=== PATIENT | male | born 1950 | race Caucasian/White ===

== ENCOUNTER 2025-03-10 15:14 | Outpatient (AMB) | payer MEDICARE, SELFPAY ==
--- OUTSIDE RECORDS SUMMARY | 2025-03-06 12:00 | XMS_ITS | Encounter Summary ---
Author Organization [facility] Address [address] [place] [address] Care Team Providers Care Printing Manager Name Role Phone Kane Goetz Primary Care Provider [phone] Reason for Visit * Consultation (Routine) - Authorized Specialty Diagnoses / Procedures Referred By Bella hoskins Referred To Contact Physical Therapy Diagnoses Hammer toe, unspecified laterality Bilateral shoulder pain, unspecified chronicity Kane Goetz PA [address] [place] [address] Phone: tel: fax: Referral ID Status Reason Start Date Expiration Date Visits Requested Visits Authorized [id number] Authorized Specialty Services Required 02/14/2025 02/14/2026 13 13 Encounter Details Date Type Department Care Team (Late st Contact Info) Description 03/06/2025 12:00 PM EDT Treatment Outpatient Rehabilitation - [address] [address] Keely King, FINANCIAL INSTITUTION BRANCH MANAGER Bilateral shoulder pain, unspecified chronicity (Primary Dx) Social History Tobacco Use Types Packs/Day Years Used Date Smoking Tobacco: Former Cigarettes Smokeless Tobacco: Never Comments:Quit in 1972 Alcohol Use Standard Drinks/Week Comments Yes 0 (1 standard drink = 0.6 oz pur e alcohol) Housing Instability Answer Date Recorde d Are you worried that in the next 2 months you may not have stable housing? No 09/30/2024 Food Access & Nutrition Answer Date Rec orded Do you have access to a vari ety of food including fruits and vegetables? Yes 09/30/2024 Access to Healthcare Answer Date Record ed Within the last 3 months, ho w many times did you visit the emergency department for your medical care? 0 09/30/2024 Health Literacy Answer Date Recorded How often do you need to hav e someone help you when you read instructions, pamphlets, or other written material from your doctor or pharmacy? Never 09/30/2024 Caregiver: How often do you need to have someone help you when you read instructions, pamphlets, or other written material from your doctor or pharmacy? Not on file 09/30/2024 Financial Risk Answer Date Recorded How hard is it for you to pa y for the very basics like food, housing, medical care, and air conditioning / heating? Not very hard 09/30/2024 Transportation Answer Date Recorded Has the lack of transportati on kept you from meetings, work, or from getting things needed for daily living? No Has the lack of transportati on kept you from medical appointments or from getting medications? No 09/30/2024 Social Isolation Answer Date Recorded How often do you feel lonely or isolated from th ose around you? Rarely 09/30/2024 Food Risk Answer Date Recorded Within the past 12 months we worried whether our food would run out before we got money to buy more. Never true 09/30/2024 Within the past 12 months th e food we bought just didn't last and we didn't have money to get more. Never true 09/30/2024 Dependent Care Answer Date Recorded Do you need help finding or paying for care for your loved ones. For example, child care cook or elderly care for an older adult? No 09/30/2024 Education Answer Date Recorded Do you think completing more education or training, like finishing a GED, going to college, or learning a trade, would be helpful for you? No 09/30/2024 Employment and Income Answer Date Recor ded During the last four weeks, have you been actively looking for work? No 09/30/2024 Living Situation Answer Date Recorded What is your living situation? 0 09/30/2024 Sex and Gender Information Value Date Recorded Sex Assigned at Male 03/04/2025 3:20 PM EDT Legal Sex Male 2:01 PM EST Gender Identity Male 03/04/2025 3:20 PM EDT Sexual Orientation Straight 03/04/2025 3: 20 PM EDT documented as of this encounter Progress Notes * Keely King PTA - 03/06/2025 12:00 PM EDT [facility] - Outpatient PHYSICAL THERAPY DAILY TREATMENT NOTE - OP Date: 03/06/2025 Visit Number: 5 Patient Name: Alfie Arevalo : 1950 Age: 74 y.o. Gender: male Diagnosis: ICD-10-CM ICD-9-CM 1. Bilateral shoulder pain, unspecified chronicity M25.511 719.41 M25.512 Date of Onset/Surgery: 12/18/2024 Referring Provider: Kane Goetz PA Insurance: Payor: MEDICARE / Plan: MEDICARE PART A & B / Product Type: Medicare / Patient Identified by: Keely King PTA Language: Setswana Medications: Current Outpatient Medications on File Prior to Visit Medication Sig Dispense Refill acetaminophen (TYLENOL) 500 mg tablet Take by mouth 2 (two) times a day. apixaban (ELIQUIS) 5 mg tablet Take 1 tablet (5 mg total) by mouth 2 (two) times a day. 180 each 3 azelastine (ASTELIN) 137 mcg (0.1 %) nasal spray Administer 2 sprays into each nostril 2 (two) times a day. 90 mL 3 B complex tablet Take 1 tablet by mouth 1 (one) time each day. betamethasone valerate (VALISONE) 0.1 % cream Apply 1 Application topically 2 (two) times a day. 90g 1 cholecalciferol (VITAMIN D-3) 10 mcg (400 unit) tablet Take by mouth. cyanocobalamin (VITAMIN B-12) 1,000 mcg tablet Take 1 tablet (1,000 mcg total) by mouth. dilTIAZem CD (CARDIZEM CD) 240 mg 24 hr capsule Take 1 capsule (240 mg total) by mouth 1 (one) timeeach day. 90 each 3 fluticasone propionate (FLONASE) 50 mcg/actuation nasal spray Administer 2 sprays into affected nostril(s). folic acid (FOLVITE) 1 mg tablet Take 1 tablet (1 mg total) by mouth 1 (one) time each day. Gemtesa 75 mg tablet tablet GENERIC EXTERNAL MEDICATION Monthly allergy injection levothyroxine (SYNTHROID, LEVOTHROID) 88 mcg tablet Take 1 tablet (88 mcg total) by mouth 1 (one) time each day. 90 tablet 3 meloxicam (MOBIC) 15 mg tablet Take 1 tablet (15 mg total) by mouth 1 (one) time each day after dinner. 90 tablet 1 methotrexate 2.5 mg tablet Take 3 tablets (7.5 mg total) by mouth 1 (one) time per week Follow directions carefully, and ask to explain any part you do not understand. Take exactly as directed. metoprolol tartrate (LOPRESSOR) 25 mg tablet TAKE 1 TABLET TWICE A DAY 180 tablet 2 montelukast (SINGULAIR) 10 mg tablet Take 1 tablet (10 mg total) by mouth at bedtime. 90 each 3 multivitamin tablet Take by mouth. With minerals omega-3 acid ethyl esters (LOVAZA) 1 gram capsule Take 1 capsule (1,000 mg total) by mouth 1 (one) time each day. omeprazole (PriLOSEC) [address] capsule Take 1 capsule (20 mg total) by mouth 1 (one) time each day.90 capsule 3 solifenacin (VESICARE) 10 mg tablet Take 1 tablet (10 mg total) by mouth. [DISCONTINUED] oxyBUTYnin XL (DITROPAN-XL) 10 mg 24 hr tablet Take 1 tablet (10 mg total) by mouth. No current facility-administered medications on file prior to visit. Allergies: is allergic to grass pollen and sulfa (sulfonamide antibiotics). Precautions: Fall risk: No Patient/Caregiver Goals: SUBJECTIVE Subjective Report: I mowed the lawn for 3 hours yesterday. I am sore from it. Chart Reviewed: Yes Pain Mostly left shoulder 5/10. OBJECTIVE TREATMENT INTERVENTION: Procedures: UBE 2 forward/3 retro mins. Unweighted ronal via 3 lbs, 30 reps for flexion and scaption. 5 second hold. Standing L Sh ER walk outs x 2 sets of 10. Standing Shoulder Ext w/ Green cord x 2 sets of 10. Manual Therapy: PROM for L Sh Flex, ABD, ER. IR. STM/MFR to L Pec [place]. KT taping w/ 2 pieces: RTC and GH retraction w/ education on care/removal. HEP: (B) ER w/ GTB, Supine AA flexion, AA sh ER, Seated chin Tucks, Seated Scap retraction. ASSESSMENT/Response to Treatment Good Good relief after PT but pt continues to challenge it w/ ADL's. Patient Education: Pt education on pacing strategies w/ yard tasks. PLAN POC Development/Review: Changes in the Plan of Care; Participants: Patient Total Treatment Time: 30 Modalities: There Ex: 21 Manual Therapy: 9 Documentation completed by Keely King PTA documented in this encounter Plan of Treatment Upcoming Encounters Date Type Department Care Team (Late st Contact Info) Description 03/12/2025 1:00 PM EDT Treatment Outpatient Rehabilitation [address] [phone] Ryan Caputo, PT 03/17/2025 12:30 PM EDT Treatment Outpatient [address] [phone] Keely King, NISREEN 03/19/2025 1:30 PM EDT Treatment Outpatient [address] [phone] Ryan Caputo, PT 04/09/2025 12:45 PM EDT Office Visit Adult Medicine [address] [phone] Kane Goetz, PA [address] [place], [place] 04/21/2025 1:45 PM EDT Office Visit Orthopedic Surgery [facility] [address] [phone] Aguila Palencia, DPM [address] [address] 09/01/2025 2:20 PM EST Office Visit Pulmonolgy - [place] [address] [place] [address] Vee Feldman NP [address] [place] [address] documented as of this encounter Visit Diagnoses Diagnosis Bilateral shoulder pain, unspecified chronicity- Primary documented in this encounter Additional Health Concerns Assessment Noted Time PHQ-9 Depression Total Score: 0 10/01/19 25 11:08 AM EDT documented as of this encounter Care Teams Printing Manager Relationship Specialty Start Date End Date Kane Goetz PA [address] [place] [address] PCP - General Internal Medicine 06/04/24 documented as of this encounter
--- OUTSIDE RECORDS SUMMARY | 2025-03-10 15:47 | XMS_ITS ---
Author Name [facility] Organization Unknown Care Team Organization Name Specialty Phone Email Start Date End Da te [facility] Kane Goetz Primary Care 12/30/2022 [facility] Vee Feldman Primary Care 05/31/2022 03/11/2024
== END 2025-03-10 15:21 | disposition home or self-care (01) ==
LOC: HO.HMGAL 15:14
PROVIDERS: PCP Physician Assistant Medical; Visit Provider Registered Nurse Emergency
DX: J30.89 Other allergic rhinitis (principal)
CPT/HCPCS: 95117; 95165

== ENCOUNTER 2025-04-07 14:22 | Outpatient (AMB) | payer MEDICARE, SELFPAY | END 2025-04-07 14:23 | disposition home or self-care (01) | LOC: HO.HMGAL 14:22 | PROVIDERS: PCP Physician Assistant Medical; Visit Provider Registered Nurse Emergency | DX: J30.89 Other allergic rhinitis (principal) | CPT/HCPCS: 95117; 95165 ==

== ENCOUNTER 2025-05-07 14:40 | Outpatient (AMB) | payer MEDICARE, SELFPAY ==
--- OUTSIDE RECORDS SUMMARY | 2025-04-10 10:00 | XMS_ITS ---
Author Organization [facility] Address [address] [place] [address] Care Team Providers Care Director Of Land Acquisition Name Role Phone Kane Giron Primary Care Provider Unav ailable Kira aBrragan Unavailable [phone] Encounters Encounter Location Date Provider Diagnosis [facility] [address] [place] [address] 04/10/2025 Kira Barragan Plan Of Treatment No Information Progress Notes * Alfie AREVALODOB: (74 yo M)Acc No.[id number]:04/10/2025 Progress Notes Patient: Alfie MAN Provider: Emmanuel Barragan DPM :1950 A ge:74 Y S ex:Male Date:04/10/2025 Address:[address] [place], [place] [id number] Pcp:HEIDI Perez Subjective: * Chief Complaints: * [...] 0 04/10/2025 Generated for Latoya manriquez/Virgie/Russ on: 06:23 PM EDT
--- OUTSIDE RECORDS SUMMARY | 2025-05-07 18:23 | XMS_ITS | Patient Health Record ---
Author Organization [facility] Address [address] [place] [address] Care Team Providers Care Terrestrial Ecologist Name Role Phone Kane Giron Primary Care Provider Unav ailable Kira Barragan Unavailable [phone] Reason For Referral No Information Encounters Encounter Location Date Provider Diagnosis [facility] [address] [place] [address] 01/28/2025 Kira Barragan Plan Of Treatment No Information Insurance Providers Payer Name Payer Address Payer Phone Subscriber Number Group Number Insured Name Patient Relationship to Insured Coverage Start Date Coverage End Date Medicare National [facility] [address] [facility] [place] [address] [id number] Alfie Arevalo Self - patient is the insured [employer] Blue [employer] [address] [place] [address] [phone] [id number] Alfie Arevalo Self - patient is the insured
== END 2025-05-07 14:40 | disposition home or self-care (01) ==
LOC: HO.HMGAL 14:40
PROVIDERS: PCP Physician Assistant Medical; Visit Provider Registered Nurse Emergency
DX: J30.89 Other allergic rhinitis (principal)
CPT/HCPCS: 95117; 95165

== ENCOUNTER 2025-06-04 15:07 | Outpatient (AMB) | payer MEDICARE, SELFPAY ==
--- OUTSIDE RECORDS SUMMARY | 2025-04-10 09:00 | XMS_ITS ---
Author Organization [facility] Address [address] [place] [address] Care Team Providers Care Perianesthesia Manager Name Role Phone Kane Giron Primary Care Provider Unav ailable Kira Barragan Unavailable [phone] Encounters Encounter Location Date Provider Diagnosis [facility] [address] [place] [address] 04/10/2025 Kira Barragan Plan Of Treatment No Information Progress Notes * Alfie AREVALODOB: (74 yo M)Acc No.[id number]:04/10/2025 Progress Notes Patient: Alfie MAN Provider: Emmanuel Barragan DPM :1950 A ge:74 Y S ex:Male Date:04/10/2025 Address:[address] [place], [place] [id number] Pcp:HEIDI Perez Subjective: * Chief Complaints: * * Medical History: Objective: * Vitals: Assessment: Plan: * Treatment: * Images: * The named appointment provid er may or may not be the originator of this progress note, and it is not deemed complete until electronically signed by the appointment provider. Sign off status: Pending * Provider: Emmanuel Barragan DPM Date: 0 04/10/2025 Generated for Latoya manriquez/Virgie/Russ on: 08/04/2024 06:26 PM EST
--- OUTSIDE RECORDS SUMMARY | 2025-06-04 13:30 | XMS_ITS | Encounter Summary ---
Author Organization [facility] Address [address] [place] [address] Care Team Providers Care Bottom Man Name Role Phone Kane Goetz Primary Care Provider [phone] Reason for Visit * Consultation (Routine) - Authorized Specialty Diagnoses / Procedures Referred By Bella hoskins Referred To Contact Physical Therapy Diagnoses Bilateral hip pain Jenni Osborn PA [address] [place], [place] Phone: tel: fax: Referral ID Status Reason Start Date Expiration Date Visits Requested Visits Authorized [id number] Authorized Specialty Services Required 04/15/2025 04/15/2026 1 13 Encounter Details Date Type Department Care Team (Late st Contact Info) Description 06/04/2025 1:30 PM EST Treatment Outpatient Rehabilitation [address] [phone] Keely King, OIL RECOVERY UNIT OPERATOR Bilateral hip pain (Primary Dx) Social History Tobacco Use Types [...] care for your loved ones. For example, children's literature professor or elderly care for an older adult? [...] Date Recorded What is your living situation? Unrecognized valu e 09/30/2024 Sex and Gender Information Value Date Recorded Sex Assigned at Male 03/04/2025 3:20 PM EDT Legal Sex Male 2:01 PM EST Gender Identity Male 03/04/2025 3:20 PM EDT Sexual Orientation Straight 03/04/2025 3: 20 PM EDT documented as of this encounter Progress Notes * Keely King PTA - 06/04/2025 1:30 PM EST [facility]- Outpatient PHYSICAL THERAPY DAILY TREATMENT NOTE - OP Date: 06/04/2025 Visit Number: 5 Patient Name: Alfie Arevalo : 1950 Age: 74 y.o. Gender: male Diagnosis: ICD-10-CM ICD-9-CM 1. Bilateral hip pain M25.551 719.45 M25.552 Date of Onset/Surgery: 03/25/2025 Referring Provider: Jenni Osborn PA Insurance: Payor: MEDICARE / Plan: MEDICARE PART A & B / Product Type: Medicare / Patient Identified by: Keely King PTA Language: Speaks and understands Bahraini as preferred language with no metal miner required Medications: Medications Ordered Prior to Encounter[1] Allergies: is allergic to grass pollen and sulfa (sulfonamide antibiotics). Precautions: None Fall risk: No SUBJECTIVE: Subjective Report: Chart Reviewed: Yes Pain: (B) hip /10. OBJECTIVE: Vitals: There were no vitals filed for this visit.; TREATMENT INTERVENTION: Therex: Nu Step L5 x 5 minutes. True stretch for HF stretching x 3 reps on each side w/ 30 sec hold Marching PTB w/ hands on True stretch x 2 sets of 10 on each side. Lat stepping w/ BTB length counter x 3 laps each. SKTC x 4 reps w/ 20 sec hold. Bridging w/ Hip ADD x 2 sets of 10. Manual Therapy: Manual stretching of (B) LE': HF, Hip Rot, Hip Ext. (B) Lat Hip Distraction. Foam rolling to (B) ITB's, Vl's. ASSESSMENT/Response to Treatment Good Decreased (B) hip pain. Pt departed clinic w/ increased step length. Patient Education: Education provided: HEP: Alt Knee fall outs in H/L. standing HF stretch on stairs.Bridging w/ Hip ADD. Lat stepping w/ BTB. SKTC. Education Provided To: Patient utilizing Explanation, Demonstration, and Printed Material mode(s) of education Response to Education: Applied Knowledge, Verbal Understanding, and Demonstrated Skills PLAN POC Development/Review: No Change in the Plan of Care; Participants: Patient Interventions Time Entry: Modalities: Therapeutic procedures: Therex: 21 Manual therapy: 9 Total Treatment Time: 30 Documentation completed by Keely King PTA [1] Current Outpatient Medications on File Prior to [...] tablet GENERIC EXTERNAL MEDICATION Monthly allergy injection ketoconazole (NIZORAL) 2 % cream Apply topically 1 (one) time each day. 60 g 2 levothyroxine (SYNTHROID, LEVOTHROID) 88 mcg tablet Take 1 tablet (88 mcg total) by mouth 1 (one) time each day. 90 tablet 3 meloxicam (MOBIC) 15 mg tablet Take 1 tablet (15 mg total) by mouth 1 (one) time each day after dinner. 90 tablet 0 methotrexate 2.5 mg tablet Take 3 tablets [...] facility-administered medications on file prior to visit. documented in this encounter Plan of Treatment Upcoming Encounters Date Type Department Care Team (Late st Contact Info) Description 06/06/2025 12:30 PM EST Treatment Outpatient Rehabilitation [address] [phone] Keely King PTA 06/11/2025 12:30 PM EST Treatment Outpatient [address] [phone] Ryan Caputo, ANANYA 06/13/2025 1:15 PM EST Office Visit Adult Medicine [address] [phone] Jenni Osborn PA [address] [place] [address] 07/21/2025 3:00 PM EST Office Visit Orthopedic Surgery - [place] [address] [address] Aguila Palencia DPM [address] [address] 09/01/2025 2:20 PM EST Office Visit Pulmonology - [place] [address] [facility] [address] [place] [address] Vee Feldman, EDWARDO [address] [place] [address] documented as of this encounter Goals Goal Patient Goal Type Associated Problems Recent Progress Patient-Stated? Author STG's 6 visits General Yes Ryan Caputo, PT Note: Pt will report a 25% or better decrease in B hip pain when climbing stairs, walking or driving > 2 hours of sitting. Pt will demonstrate a 1/2 grade or better increase in B hip strength to increase tolerance to walking and negotiating stairs. Pt is Independent and compliant with initial HEP. LTG's 12 visits General Yes Ryan Caputo, PT Note: Pt will report a 45% or better decrease in B hip pain when climbing stairs, walking or driving @[place]. Pt will demonstrate a 1 grade or better increase in B hip strength to increase tolerance to walking and negotiating stairs. Pt will be Independent and compliant with final HEP. documented as of this encounter Visit Diagnoses Diagnosis Bilateral hip pain- Primary Pain in joint, pelvic region and thigh documented in this encounter Additional Health Concerns Assessment Noted Time PHQ-9 Depression Total Score: 0 10/01/19 25 11:08 AM EDT documented as of this encounter Care Teams Bottom Man Relationship Specialty Start Date End Date Kane Goetz PA [address] [place] [address] PCP - General Internal Medicine 06/04/24 documented as of this encounter
--- OUTSIDE RECORDS SUMMARY | 2025-06-04 18:26 | XMS_ITS | Patient Health Record ---
Author Organization [facility] Address [address] [place] [address] Care Team Providers Care Machinist 2Nd Shift Name Role Phone Kane Giron Primary Care Provider Unav ailable Kira Barragan Unavailable [phone] Reason For Referral No Information Encounters Encounter Location Date Provider Diagnosis [facility] [address] [place] [address] 01/28/2025 Kira Barragan Plan Of Treatment No Information Insurance Providers Payer Name Payer Address Payer Phone Subscriber Number Group Number Insured Name Patient Relationship to Insured Coverage Start Date Coverage End Date Medicare National [facility] [address] [place] [address] [id number] Alfie Arevalo Self - patient is the insured [employer] Blue [employer] [address] [place] [address] [id number] Alfie Arevalo Self - patient is the insured
--- OUTSIDE RECORDS SUMMARY | 2025-06-04 18:26 | XMS_ITS | Clinical Summary ---
Author Organization [address] [place] [address] Address [address] [place] [address] Phone Care Team Providers Care Swabber Name Role Phone Kane Goetz Primary Care Provider [phone] Allergies Active Allergy Reactions Criticality Noted Date Comments Grass Pollen 12/25/2015 Sulfa (Sulfonamide Antibiotics) Rash 09/22 Medications fluticasone propionate (FLONASE) 50 mcg/actuation nasal spray Administer 2 sprays into affected nostril(s). 3 Active multivitamin tablet Take by mouth. With minerals Active cyanocobalamin (VITAMIN B-12) 1,000 mcg tablet Take 1 tablet (1,000 mcg total) by mouth. Active solifenacin (VESICARE) 10 mg tablet Take 1 tablet (10 mg total) by mouth. Active cholecalciferol (VITAMIN D-3) 10 mcg (400 unit) tablet Take by mouth. Activ e omega-3 acid ethyl esters (LOVAZA) 1 gram capsule Take 1 capsule (1,000 mg total) by mouth 1 (one) time each day. 1 Active GENERIC EXTERNAL MEDICATION Monthly allergy injection Active dilTIAZem CD (CARDIZEM CD) 240 mg 24 hr capsule Take 1 capsule (240 mg total) by mouth 1 (one) time each day. 90 each 3 4 06/14/20 25 Active apixaban (ELIQUIS) 5 mg tablet Take 1 tablet (5 mg total) by mouth 2 (two) times a day. 180 each 3 4 06/14/20 25 Active acetaminophen (TYLENOL) 500 mg tablet Take by mouth 2 (two) times a day. Active levothyroxine (SYNTHROID, LEVOTHROID) 88 mcg tablet Take 1 tablet (88 mcg total) by mouth 1 (one) time each day. 90 tablet 3 5 Active omeprazole (PriLOSEC) [address] capsule Take 1 capsule (20 mg total) by mouth 1 (one) time each day. 90 capsule 3 5 Active metoprolol tartrate (LOPRESSOR) 25 mg tablet TAKE 1 TABLET TWICE A DAY 180 tablet 2 5 Active betamethasone valerate (VALISONE) 0.1 % cream Apply 1 Application topically 2 (two) times a day. 90 g 1 5 Active Gemtesa 75 mg tablet tablet 5 Active B complex tablet Take 1 tablet by mouth 1 (one) time each day. Active azelastine (ASTELIN) 137 mcg (0.1 %) nasal sprayIndications :Chronic cough Administer 2 sprays into each nostril 2 (two) times a day. 90 mL 3 5 12/20/19 26 Active montelukast (SINGULAIR) 10 mg tabletIndication s:Chronic cough Take 1 tablet (10 mg total) by mouth at bedtime. 90 each 3 5 12/29/19 26 Active methotrexate 2.5 mg tabletIndication s:rheumatoid arthritis Take 3 tablets (7.5 mg total) by mouth 1 (one) time per week Follow directions carefully, and ask to explain any part you do not understand. Take exactly as directed. Active folic acid (FOLVITE) 1 mg tabletIndication s:with methotrexate Take 1 tablet (1 mg total) by mouth 1 (one) time each day. Active ketoconazole (NIZORAL) 2 % cream Apply topically 1 (one) time each day. 60 g 2 5 07/20/20 25 Active meloxicam (MOBIC) 15 mg tablet Take 1 tablet (15 mg total) by mouth 1 (one) time each day after dinner. 90 tablet 5 Active Active Problems Problem Noted Date Diagnosed Date Coronary artery calcification seen on CT scan Overview (06/14/2024): - Comment made about it on CT scan performed for assessment of thoracic aortic aneurysm in 2019 Assessment & Plan (06/14/2024 1:46 PM EST): I reviewed that he already has evidence of subclinical coronary disease on CT scans. At this stage, his 10-year risk of cardiovascular events is definitely greater than 10%. He would benefit from primary prevention statin and theoretically it would be secondary prevention given evidence of subclinical coronary artery calcification. He would prefer not to take statins however. I think this is reasonable. He has lost 10 pounds. We reviewed that he really needs to focus on going on a very low saturated fat diet-predominantly [id number] start regular aerobic exercise. I have ordered a fasting lipid profile for him to get checked in July. He has an appointment with his PCP in September of next year. If lipids are significantly lowered, I think he can get away without statin therapy. If not, would readdress at next PCP visit. Mixed hyperlipidemia 06/14/2024 Assessment & Plan (06/14/2024 1:44 PM EST): Orders: Lipid panel; Future Lipid panel RIANNA (obstructive sleep apnea) 10/03/2023 History of Clostridioides difficile colitis 08/25 Total knee replacement status, bilateral 021 Hypothyroidism 05/29/2019 Thoracic aortic aneurysm without rupture ([facility]/HC C V24) 08/03/2018 Overview (06/14/2024): - Most recent echocardiogram from 10/19/2023 showed normal left ventricular size, wall thickness, and systolic function, normal regional wall motion with an ejection fraction of 55 to 60%, tissue Doppler evidence of increased left atrial pressure, mildly dilated right ventricle with normal systolic function, biatrial enlargement, no hemodynamically significant valve disease, mild to moderate pulmonary hypertension with RV systolic pressure 46 mmHg, evidence of high right atrial pressure, dilated ascending aorta at 4 cm and aortic root at 4.3 cm-likely unchanged from prior echo in March 2022 - CT scan of the chest without contrast on most recently on 03/02/2023 showing the thoracic aorta measuring 4 cm-unchanged from 2019 Assessment & Plan (06/14/2024 1:46 PM EST): Has been very stable over the years now. Can space out surveillance imaging to every 3 years. However he may be getting more frequent CT imaging for pulmonary reasons which would also serve to track aortic growth if any. 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, Hurthle cell adenoma Esophageal reflux 02/06/2015 Atrial fibrillation (CMS/HCC V24, [facility]/HCC V28) 1 09/20/2011 Overview (06/14/2024): -Incidentally noted in 2012 during colonoscopy with spontaneous conversion to normal sinus rhythm -Has been in persistent A-fib and EKGs dating back to at least 2021 -Rate control strategy and on Eliquis for CVA prophylaxis Assessment & Plan (06/14/2024 1:46 PM EST): Adequately rate controlled on current diltiazem and on Eliquis for CVA prophylaxis, I have provided refills for both Orders: ECG 12 lead BPH (benign prostatic hyperplasia) 03/05/2012 Overview (09/12/2023): Urology - 03/04 - PSA 0.8 with normal TIMA; f/u 1 year Gallstones 12/17/2009 Overview (09/12/2023): Noted on ct scan 2009 Diverticulitis of colon without hemorrhage 10/16 Urinary frequency 10/16/2005 Allergic rhinitis 10/16/2005 Resolved Problems Problem Noted Date Diagnosed Date Resolved Date Paroxysmal atrial fibrillati on ([facility] V24, [facility] V28) 05/02/2024 06/14/2024 Pure hypercholesterolemia 04/30/2021 Overview (09/12/2023): Last Assessment & Plan: Patient's LDL somewhat elevated. Given no known coronary artery disease or diabetes, dietary modification can continue though low threshold for starting statin therapy should his LDL go any higher. RIANNA on CPAP 12/03/2018 06/14/2024 Overview (09/12/2023): [facility] home study: Date 04/27/18: AHI 13, Central apneas 6; Obstructive apneas 28; Mixed apneas 0; hypopneas 49; average oxygen saturation 92% (lowest 76%); Hypertriglyceridemia 09/10/2009 024 Encounters Date Type Department Care Team Description 06/04/2025 1:30 PM EST Treatment Outpatient Rehabilitation [address] [phone] Keely King, GRAIN MERCHANDISER Bilateral hip pain (Primary Dx) 05/28/2025 1:30 PM EST Treatment Outpatient [address] [phone] Keely King, GRAIN MERCHANDISER Bilateral hip pain (Primary Dx) 05/26/2025 1:30 PM EST Treatment Outpatient [address] [phone] Keely King, GRAIN MERCHANDISER Bilateral hip pain (Primary Dx) 05/23/2025 11:30 AM EDT Treatment Outpatient [address] [phone] Keely King, GRAIN MERCHANDISER Bilateral hip pain (Primary Dx) 05/12/2025 1:30 PM EDT Treatment Outpatient [address] [phone] Ryan Caputo, PT Bilateral hip pain (Primary Dx); Bilateral shoulder pain, unspecified chronicity 05/12/2025 Plan of Care Documentation Outpatient Rehabilitation [address] [phone] 05/07/2025 1:30 PM EDT Treatment Outpatient [address] [phone] Patito Ryan, PT Bilateral shoulder pain, unspecified chronicity (Primary Dx) 04/30/2025 1:30 PM EDT Treatment Outpatient [address] [phone] Patito, Ryan, PT Bilateral shoulder pain, unspecified chronicity (Primary Dx) 04/21/2025 1:45 PM EDT Office Visit Orthopedic Surgery [address] [phone] Aguila Palencia, DPM Acquired hallux valgus of left foot (Primary Dx); Acquired hallux valgus of right foot; Acquired hammer toe of right foot; Hammer toe of left foot; Ingrowing nail; Dermatophytosis of nail; Pain in toe of right foot; Pain in toe of left foot; Tinea pedis of both feet; Difficulty walking 04/10/2025 1:30 PM EDT Treatment Outpatient Rehabilitation [address] [phone] Patito Ryan, PT Bilateral shoulder pain, unspecified chronicity (Primary Dx) 04/04/2025 12:00 PM EDT Treatment Outpatient Rehabilitation [address] [phone] Keely King H, GRA[employer]CH[employer]ISER Bilateral shoulder pain, unspecified chronicity (Primary Dx) 03/28/2025 12:00 PM EDT Treatment Outpatient [address] [phone] Keely King H, GRA[employer] MERCH[employer]ISER Bilateral shoulder pain, unspecified chronicity (Primary Dx) 03/25/2025 1:30 PM EDT Treatment Outpatient Rehabilitation [address] [phone] Ryan Caputo, PT Bilateral shoulder pain, unspecified chronicity (Primary Dx) 03/17/2025 12:30 PM EDT Treatment Outpatient [address] [phone] Keely King H, GRAIN MERCH[employer]ISER Bilateral shoulder pain, unspecified chronicity (Primary Dx) 03/12/2025 1:00 PM EDT Treatment Outpatient [address] [phone] Keely King H, GRAIN MERCH[employer]ISER Bilateral shoulder pain, unspecified chronicity (Primary Dx) 03/11/2025 12:15 PM EDT - 03/11/2025 11:59 PM EDT Hospital Encounter [address] [phone] Acute pain of right knee Discharge Disposition: Home or Self Care 03/10/2025 2:00 PM EDT Treatment [address] [phone] Keely King H, GRAIN MERCH[employer]ISER Bilateral shoulder pain, unspecified chronicity (Primary Dx) 03/06/2025 12:00 PM EDT Treatment [address] [phone] Keely King H, GRAIN MERCH[employer]ISER Bilateral shoulder pain, unspecified chronicity (Primary Dx) 03/04/2025 11:00 AM EDT Treatment Outpatient [address] [phone] Keely King H, GRA[employer] MERCH[employer]ISER Bilateral shoulder pain, unspecified chronicity (Primary Dx) from Last 3 Months Immunizations Immunization Administration Dates Next Due Influenza Quadravalent, 0.5m l (Fluzone High-dose) 65yo and older 05/18/2022,05/13/2020 Influenza Quadravalent, MDCK , 0.5ml, preservative free (Flucelvax) 6mo and older 05/21/2018 Influenza trivalent, 0.5mL ( Fluzone High-dose) 65yo and older 06/07/2023,05/18/2022,04/30/2021,04/12 Influenza trivalent, with pr eservative (Fluzone; Afluria) 6mo and older 06/09/2016 Moderna SARS-CoV-2 COVID-19, mRNA, LNP-S, preservative free 05/18/2022 Pfizer (ages 12 & older) Biv alent, COVID-19 05/18/2022 Pneumococcal conjugate 13 va lent (Prevnar 13, PCV13) 2mo and older 06/09/2016 Pneumococcal polysaccharide 23 valent (Pneumovax 23) 2yo and older 07/03/2017 RSV, bivalent, protein subun it RSVpreF, 0.5mL, Preservative Free (Arexvy) 50yo and older 06/27/2023 Td Tetanus diptheria (Tdvax) 7yo and older 03/07/2018,10/06/2003 Tdap Tetanus diptheria acell ular pertussis (Boostrix; Adacel) 7yo and older 09/19/2011 Zoster Live 03/14/2011 Zoster recombinant (Shingrix ) 19yo and older 09/07/2020,06/07/2020 Medical History Medical History Date Comments Atrial fibrillation ([facility] V24, [facility] V28) Diabetes mellitus ([facility] V24, [facility] V28) Hypertension Aneurysm ([facility] V24) Family History Medical History Relation Name Comments other Father blindness Relation Name Status Comments Father Social History Tobacco Use Types Packs/Day Years Used Date Smoking Tobacco: Former Cigarettes Smokeless Tobacco: Never Tobacco Cessation:Counseling Given: Not Answered Comments:Quit in 1972 Alcohol Use Standard Drinks/Week [...] care for your loved ones. For example, assistant child care teacher or elderly care for an older adult? [...] Orientation Straight 03/04/2025 3: 20 PM EDT Obstetrics History Last Filed Vital Signs Vital Sign Reading Time Taken Comments Blood Pressure 124/60 02/26/2025 2:24 PM EDT Pulse 82 02/26/2025 2:24 PM EDT Temperature 35.7 C (96.2 F) 02/26/2025 2:24 PM EDT Respiratory Rate 16 02/26/2025 2:24 PM EDT Oxygen Saturation 98% 02/26/2025 2:24 PM EDT Inhaled Oxygen Concentration - - Weight 90.4 kg (199 lb 3.2 oz) 02/26/2025 2:24 P M EDT Height 180.3 cm (5' 11 ) 02/26/2025 2:24 PM EDT Body Mass Index 27.78 02/26/2025 2:24 PM EDT Plan of Treatment Upcoming Encounters Date Type Department Care Team (Late st Contact Info) Description 06/06/2025 12:30 PM EST Treatment Outpatient Rehabilitation [address] [phone] Keely King, GRAIN MERCHANDISER 06/11/2025 12:30 PM EST Treatment Outpatient Rehabilitation - [address] [phone] Ryan Caputo, PT 06/13/2025 1:15 PM EST Office Visit Adult Medicine [facility] - [address] [phone] Jenni Osborn, PA [address] [place], [place] 07/21/2025 3:00 PM EST Office Visit Orthopedic Surgery - [place] [address] [facility] [address] [place] [phone] Aguila Palencia, DPM [address] [phone] 09/01/2025 2:20 PM EST Office Visit Pulmonology - [place] [address] [facility] [address] [place] [phone] Vee Feldman, AGRICULTURE TEACHER [address] [place] [phone] Health Maintenance Due Date Last Done Comments Medicare Annual Wellness Visit 03/31/2024 03/31/2023 Social Influencers of Health Screening 09/30/2025 09/30/2024 Falls Risk Assessment 10/07/2025 10/07/2024 COVID-19 Vaccine (8 - Pfizer risk 2024- season) 2025 05/21/2025, 04/10/2024, 05/18/2022, Additional history exists Hypertension/CHF/CAD Annual BMP Blood Test 04/03/2026 04/03/2025, 10/07/2024, 08/07/2024, Additional history exists Colorectal Cancer Screening: Colonoscopy 07/12/2026 07/12/2023 DTaP,Tdap,and Td Vaccines (4 - Td or Tdap) 03/07/2028 03/07/2018, 09/19/2011, 10/06/2003 Cholesterol Screening (Lipid Panel) 04/03/2030 04/03/2025, 10/07/2024, 08/07/2024, Additional history exists Hepatitis C Screening Completed 03/09/2012 Abdominal Aortic Aneurysm (AAA) Screen Completed 02/02/2017 Pneumococcal Vaccine: 50+ Years Completed 07/03/2017, 06/09/2016 Zoster Vaccines Completed 09/07/2020, 05/24, 03/14/2011 RSV Immunization Adult Patients Completed 06/27/2023 Depression Screening Completed 09/30/2024 Influenza Vaccine Completed 05/21/2025, , 06/07/2023, Additional history exists HIB Vaccines Aged Out No longer eligi ble based on patient's age to complete this topic HPV Vaccines Aged Out No longer eligi ble based on patient's age to complete this topic Hepatitis A Vaccines Aged Out No long er eligible based on patient's age to complete this topic Hepatitis B Vaccines Aged Out No long er eligible based on patient's age to complete this topic IPV Vaccines Aged Out No longer eligi ble based on patient's age to complete this topic MMR Vaccines Aged Out No longer eligi ble based on patient's age to complete this topic Meningococcal ACWY Vaccine Aged Out N o longer eligible based on patient's age to complete this topic Meningococcal B Vaccine Aged Out No l onger eligible based on patient's age to complete this topic RSV Immunization Patients Under 20 months Aged Out No longer eligible based on patient's age to complete this topic Varicella Vaccines Aged Out No longer eligible based on patient's age to complete this topic Goals Goal Patient Goal Type Associated Problems [...] be Independent and compliant with final HEP. Procedures Procedure Name Priority Date/Time Associated Diagnosis Comments CBC WITH AUTO DIFFERENTIAL Routine 04/03/2025 11:06 AM EDT Acute pain of right knee Thrombocytopenia (CMS/HCC V24) Hypothyroidism, unspecified type Persistent atrial fibrillation (CMS/HCC V24, CMS/HCC V28) LIPID PANEL WITH REFLEX TO DIRECT LDL Routine 04/03/2025 11:06 AM EDT Acute pain of right knee Thrombocytopenia (CMS/HCC V24) Hypothyroidism, unspecified type Persistent atrial fibrillation (CMS/HCC V24, CMS/HCC V28) COMPREHENSIVE METABOLIC PANEL Routine 04/03/2025 11:06 AM EDT Acute pain of right knee Thrombocytopenia (CMS/HCC V24) Hypothyroidism, unspecified type Persistent atrial fibrillation (CMS/HCC V24, CMS/HCC V28) THYROID STIMULATING HORMONE WITH REFLEX TO FREE T4 AND FREE T3 Routine 04/03/2025 11:06 AM EDT Acute pain of right knee Thrombocytopenia (CMS/HCC V24) Hypothyroidism, unspecified type Persistent atrial fibrillation (CMS/HCC V24, CMS/HCC V28) CBC AND DIFFERENTIAL Routine 04/03/2025 11:06 AM EDT Acute pain of right knee Thrombocytopenia (CMS/HCC V24) Hypothyroidism, unspecified type Persistent atrial fibrillation (CMS/HCC V24, CMS/HCC V28) VITAMIN B12 Routine 04/03/2025 11:06 AM EDT Acute pain of right knee Thrombocytopenia (CMS/HCC V24) Hypothyroidism, unspecified type Persistent atrial fibrillation (CMS/HCC V24, CMS/HCC V28) VITAMIN D 25 HYDROXY Routine 04/03/2025 11:06 AM EDT Acute pain of right knee Thrombocytopenia (CMS/HCC V24) Hypothyroidism, unspecified type Persistent atrial fibrillation (CMS/HCC V24, CMS/HCC V28) Disorder of cartilage, unspecified PROSTATE SPECIFIC ANTIGEN DIAGNOSTIC Routine 03/11/2025 12:39 PM EDT Benign localized prostatic hyperplasia with lower urinary tract symptoms (LUTS) XR KNEE 4+ VIEWS RIGHT Routine 03/11/2025 12:24 PM EDT Acute pain of right knee COLONOSCOPY Routine 07/12/2023 US ABDOMINAL AORTA REAL TIME SCREEN STUDY AAA Routine 02/02/2017 7:43 AM EDT Pure hyperglyceridemia Thoracic aortic ectasia (CMS/HCC V24) HEPATITIS C SCREENING Routine 03/09/2012 from Last 3 Months or Most Recently Relevant to Health Maintenance Results * Thyroid stimulating hormone with reflex to free t4 and free t3 (04/03/2025 11:06 AM EDT) TSH 2.14 0.40 - 4.00 mcIU/mL LAB CHEMISTRY METHOD 04/03/2025 4:[address] [facility] Blood Venous blood specimen / Unknown Venipuncture / Unknown 04/03/2025 11:06 AM EDT 04/03/2025 11:06 AM EDT Kane GORDON LAB BLOOD ORDERABLES Yolanda l Result [facility] [address] [place] [address], [place] [phone] * (ABNORMAL) Lipid panel with reflex to direct LDL (04/03/2025 11:06 AM EDT) Cholesterol 178 0 - 200 mg/dL LAB CHEMISTRY METHOD 04/03/2025 4:26 PM EDT [facility] Triglycerides 103 0 - 150 mg/dL LAB CHEMISTRY METHOD 04/03/2025 4:26 PM EDT [facility] HDL 45 >=40 mg/dL LAB CHEMISTRY METHOD 04/03/2025 4:26 PM EDT [facility] LDL Calculated 112(H) 0 - 100 mg/dL LAB CHEMISTRY METHOD 04/03/2025 4:26 PM EDT [facility] Comment:Estimated LDL Calcul ated using equation: Total cholesterol - HDL cholesterol - (Triglycerides/5) VLDL Cholesterol Joaquin 20.6 mg/dL LAB CHEMISTRY METHOD 04/03/2025 4:26 PM EDT [facility] Non HDL Chol. (LDL+VLDL) 133 <145 mg/dL LAB CHEMISTRY METHOD 04/03/2025 4:26 PM EDT [facility] Chol/HDL Ratio 4.0 0.0 - 4.4 LAB CHEMISTRY METHOD 04/03/2025 4:26 PM [facility] Blood Venous blood specimen / Unknown Venipuncture / Unknown 04/03/2025 11:06 AM EDT 04/03/2025 11:06 AM EDT Kane GORDON LAB BLOOD ORDERABLES Yolanda l Result [facility] [address] [place] [address], [place] [phone] * CBC auto differential (04/03/2025 11:06 AM EDT) [facility] [address] WBC 6.8 4.8 - 10.8 K/mcL LAB HEMETOLOGY [facility] RBC 4.70 4.50 - 5.50 M/mcL LAB HEMETOLOGY METHOD 04/03[facility]2025 [facility] Hemoglobin 15.0 13.5 - 17.5 g/dL LAB HEMETOLOGY METHOD 04/03/2025 12:14 PM [facility] Hematocrit 44.1 42.0 - 54.0 % LAB HEMETOLOGY METHOD 04/03/2025 12:14 PM [facility] MCV 93.0 79.0 - 98.0 FL LAB HEMETOLOGY METHOD 04/03/2025 12:14 PM [facility] MCH 31.6 27.0 - 32.0 pcg LAB HEMETOLOGY METHOD 04/03/2025 12:14 PM [facility] MCHC 34.0 32.0 - 37.0 g/dL LAB HEMETOLOGY METHOD 04/03/2025 12:14 PM [facility] RDW 13.4 11.0 - 15.0 % LAB HEMETOLOGY METHOD 04/03/2025 12:14 PM [facility] Platelets 168 130 - 400 K/mcL LAB HEMETOLOGY METHOD 04/03/2025 12:14 PM [facility] MPV 11.0 7.0 - 11.0 FL LAB HEMETOLOGY METHOD 04/03/2025 12:14 PM [facility] NRBC 0.0 <1.0 % LAB HEMETOLOGY METHOD [facility]/03[facility]25 [facility] NRBC Absolute 0.00 <0.10 K/mcL LAB HEMETOLOGY METHOD 04/03/2025 12:14 PM [facility] Neutrophils Relative 57.4 % LAB HEMETOLOGY METHOD 04/03/2025 12:14 PM [facility] Lymphocytes Relative 26.7 % LAB HEMETOLOGY METHOD 04/03/2025 12:14 PM [facility] Monocytes Relative 12.0 % LAB HEMETOLOGY METHOD 04/03/2025 12:14 PM [facility] Eosinophils Relative 2.8 % LAB HEMETOLOGY METHOD 04/03/2025 12:14 PM [facility] Basophils Relative 0.7 % LAB HEMETOLOGY METHOD 04/03/2025 12:14 PM [facility] Immature Granulocytes Relative 0.4 % LAB HEMETOLOGY METHOD 04/03/2025 12:14 PM [facility] Neutrophils Absolute 3.91 1.50 - 7.00 K/mcL LAB HEMETOLOGY METHOD 04/03/2025 12:14 PM [facility] Lymphocytes Absolute 1.82 1.00 - 5.00 K/mcL LAB HEMETOLOGY METHOD 04/03/2025 12:14 PM [facility] Monocytes Absolute 0.82 0.20 - 1.00 K/mcL LAB HEMETOLOGY METHOD 04/03/2025 12:14 PM [facility] Eosinophils Absolute 0.19 0.00 - 0.50 K/mcL LAB HEMETOLOGY METHOD 04/03/2025 12:14 PM [facility] Basophils Absolute 0.05 0.00 - 0.20 K/mcL LAB HEMETOLOGY METHOD 04/03/2025 12:14 PM [facility] Immature Granulocytes Absolute 0.03 0.00 - 0.03 K/mcL LAB HEMETOLOGY METHOD 04/03/2025 12:14 PM EDT [facility] Blood Venous blood specimen / Unknown Venipuncture / Unknown 04/03/2025 11:06 AM EDT 04/03/2025 11:06 AM EDT Kane GORDON LAB BLOOD ORDERABLES Yolanda l Result Performing Organization Address City/[facility]/ZIP Co de Phone Number [facility] [address] [place] [address], [place] [phone] * Vitamin D 25 hydroxy (04/03/2025 11:06 AM EDT) Vit D, 25-Hydroxy 61.7 30.0 - 80.0 ng/mL LAB CHEMISTRY METHOD 04/03/2025 4:01 PM EDT [facility] Blood Venous blood specimen / Unknown Venipuncture / Unknown 04/03/2025 11:06 AM EDT 04/03/2025 11:06 AM EDT Kane GORDON LAB BLOOD ORDERABLES Yolanda l Result Performing Organization Address City/[facility]/ZIP Co de Phone Number [facility] [address] [place] [address], [place] [phone] * Vitamin B12 (04/03/2025 11:06 AM EDT) Vitamin B-12 465 250 - 900 pcg/mL LAB CHEMISTRY METHOD 04/03/2025 4:26 PM EDT [facility] Blood Venous blood specimen / Unknown Venipuncture / Unknown 04/03/2025 11:06 AM EDT 04/03/2025 11:06 AM EDT Kane GORDON LAB BLOOD ORDERABLES Yolanda l Result [facility] [address] [place] [address], [place] [phone] * Comprehensive metabolic panel (04/03/2025 11:06 AM EDT) Sodium 136 133 - 145 mmol/L LAB CHEMISTRY METHOD 04/03/2025 4:26 PM [facility] Potassium 4.2 3.5 - 5.5 mmol/L LAB CHEMISTRY METHOD 04/03/2025 4:26 PM [facility] Chloride 101 96 - 110 mmol/L LAB CHEMISTRY METHOD 04/03/2025 4:26 PM [facility] CO2 28 21 - 32 mmol/L LAB CHEMISTRY METHOD 04/03/2025 4:26 PM [facility] Anion Gap 7 3 - 11 LAB CHEMISTRY METHOD 04/03/2025 4:26 PM [facility] Glucose 83 70 - 100 mg/dL LAB CHEMISTRY METHOD 04/03/2025 4:26 PM [facility] BUN 13 5 - 25 mg/dL LAB CHEMISTRY METHOD 04/03/2025 4:26 PM [facility] Creatinine 1.00 0.70 - 1.30 mg/dL LAB CHEMISTRY METHOD 04/03/2025 4:26 PM [facility] eGFR 79 >=60 mL/min/1. 73m2 LAB CHEMISTRY METHOD 04/03/2025 4:26 PM [facility] Comment:Calculation based on the Chronic Kidney Disease Epidemiology Collaboration (CKD-EPI) equation refit without adjustment for race. BUN/Creatinine Ratio 13.0 LAB CHEMISTRY METHOD 04/03/2025 4:26 PM [facility] Calcium 9.1 8.5 - 10.5 mg/dL LAB CHEMISTRY METHOD 04/03/2025 4:26 PM [facility] AST (SGOT) 33 10 - 42 unit/L LAB CHEMISTRY METHOD 04/03/2025 4:26 PM [facility] ALT (SGPT) 36 10 - 60 unit/L LAB CHEMISTRY METHOD 04/03/2025 4:26 PM EDT [facility] Alkaline Phosphatase 111 42 - 121 unit/L LAB CHEMISTRY METHOD 04/03/2025 4:26 PM EDT [facility] Total Protein 6.9 6.0 - 8.0 g/dL LAB CHEMISTRY METHOD 04/03/2025 4:26 PM EDT [facility] Albumin 3.8 3.2 - 5.0 g/dL LAB CHEMISTRY METHOD 04/03/2025 4:26 PM EDT [facility] Total Bilirubin 0.7 0.0 - 1.4 mg/dL LAB CHEMISTRY METHOD 04/03/2025 4:26 PM EDT [facility] Blood Venous blood specimen / Unknown Venipuncture / Unknown 04/03/2025 11:06 AM EDT 04/03/2025 11:06 AM EDT Kane GORDON LAB BLOOD ORDERABLES Yolanda l Result [facility] [address] [place] [address], * Prostate specific antigen diagnostic (03/11/2025 12:39 PM EDT) PSA 2.79 0.00 - 4.00 ng/mL LAB CHEMISTRY METHOD 03/11/2025 5:19 PM EDT [facility] Blood Venous blood specimen / Unknown Venipuncture / Unknown 03/11/2025 12:39 PM EDT 03/11/2025 12:39 PM EDT Narrative [facility] - 03/11/2025 5:19 PM EDT The Siemens Advia Centaur Chemiluminescent Immunoassay is used. Results obtained with different assay methods or kits cannot be used interchangeably. Results cannot be interpreted as absolute evidence of the presence or absence of malignant disease. us Hernán Camacho MD LAB BLOOD ORDERABLES Final Resu lt [facility] [address] [place] [address], [place] [phone] * XR Knee 4+ Views Right (03/11/2025 12:24 PM EDT) Anatomical Region Laterality Modality Lower Extremities, Knee Right [facility] 03/11/2025 10:1 0 PM EDT Impressions 03/11/2025 10:14 PM EDT Postsurgical changes of total knee arthroplasty. No acute bony abnormality. POS - [id number] -------- FINAL REPORT -------- Dictated By: Alicia Nicole Dictated Date: 03/11/2025 22:10 ET Assigned Physician: Alicia Nicole Reviewed and Electronically Signed By: Alicia Nicole Signed Date: 03/11/2025 22:14 ET Workstation ID: [id number] Transcribed By: Self Edit Transcribed Date: 03/11/2025 22:10 ET Narrative 03/11/2025 10:14 PM EDT EXAM: Right knee x-ray HISTORY: Right knee pain. COMPARISON: None VIEWS: 4 views performed. FINDINGS: Postsurgical changes of total knee arthroplasty. Femoral and tibial components are intact without surrounding lucency to indicate loosening or infection. Medial and lateral joint spaces are preserved and symmetric. No acute fracture or malalignment detected. No destructive bone lesion. No joint effusion. Procedure Note Alicia Nicole MD - 03/11/2025 EXAM: Right knee x-ray HISTORY: Right knee pain. COMPARISON: None VIEWS: 4 views performed. FINDINGS: Postsurgical changes of total knee arthroplasty. Femoral and tibialcomponents are intact without surrounding lucency to indicate loosening orinfection. Medial and lateral joint spaces are preserved and symmetric. Noacute fracture or malalignment detected. No destructive bone lesion. Nojoint effusion. IMPRESSION: Postsurgical changes of total knee arthroplasty. No acute bonyabnormality. POS - [id number] -------- FINAL REPORT -------- Dictated By: Alicia Nicole Dictated Date: 03/11/2025 22:10 ET Assigned Physician: Alicia Nicole Reviewed and Electronically Signed By: Alicia Nicole Signed Date: 03/11/2025 22:14 ET Workstation ID: [id number] Transcribed By: Self Edit Transcribed Date: 03/11/2025 22:10 ET Kane GORDON IMG XR PROCEDURES Final R esult * Colonoscopy (07/12/2023) Colonoscopy no interpretation , abstracted Anatomical Region Laterality Modality Other Historical Provider HEALTH MAINTENANCE Final Result * US ABDOMINAL AORTA REAL TIME SCREEN STUDY AAA (02/02/2017 7:43 AM EDT) Anatomical Region Laterality Modality Ultrasound 01/27/2017 2:58 PM EDT Narrative 02/02/2017 10:19 AM EDT History: Screening for abdominal aortic aneurysm. Ultrasound of the abdominal aorta: The abdominal aorta is normal in course, caliber and configuration. Proximal aortic AP diameter is 1.8 cm maximum. Mid aortic diameter is 1.9 cm, and distal aortic diameter is 1.8 cm. The common iliac arteries are normal in caliber as well. IMPRESSION: Negative screening examination for abdominal aortic aneurysm. Procedure Note Robin Dodd MD - 08/25/2023 History: Screening for abdominal aortic aneurysm. Ultrasound of the abdominal aorta: The abdominal aorta is normal incourse, caliber and configuration. Proximal aortic AP diameter is 1.8 cm maximum. Mid aorticdiameter is 1.9 cm, and distal aortic diameter is 1.8 cm. The common iliac arteries are normalin caliber as well. IMPRESSION: Negative screening examination for abdominal aortic aneurysm. Mili Ghotra MD IMG US PROCEDURES Final Result * Hepatitis C Screening (03/09/2012) Hepatitis C Screening abstracted Historical Provider HEALTH MAINTENANCE Final Result from Last 3 Months or Most Recently Relevant to Health Maintenance Insurance MEDICARE [facility] Care Teams Swabber Relationship Specialty Start Date End Date Kane Goetz PA [address] [place] [address] PCP - General Internal Medicine 06/04/24
== END 2025-06-04 15:08 | disposition home or self-care (01) ==
LOC: HO.HMGAL 15:07
PROVIDERS: PCP Physician Assistant Medical; Visit Provider Registered Nurse Emergency
DX: J30.89 Other allergic rhinitis (principal)
CPT/HCPCS: 95117; 95165

== ENCOUNTER 2025-07-02 14:50 | Outpatient (AMB) | payer MEDICARE, SELFPAY ==
--- OUTSIDE RECORDS SUMMARY | 2025-06-27 14:00 | XMS_ITS | Encounter Summary ---
Author Organization [facility] Address [address] [place] [address] Care Team Providers Care Human Resource Analyst Name Role Phone Kane Goetz Primary Care Provider [phone] Reason for Visit * Consultation (Routine) - Authorized Specialty Diagnoses / Procedures Referred By Bella hoskins Referred To Contact Physical Therapy Diagnoses Bilateral hip pain Jenni Osborn PA [address] [place], [place] Phone: tel: fax: Referral ID Status Reason Start Date Expiration Date Visits Requested Visits Authorized [id number] Authorized Specialty Services Required 04/15/2025 04/15/2026 1 13 Encounter Details Date Type Department Care Team (Late st Contact Info) Description 06/27/2025 2:00 PM EST Treatment Outpatient Rehabilitation [address] [phone] Gabbi Alex PTA Bilateral hip pain (Primary Dx) Social History [...] for your loved ones. For example, child monitor or elderly care for an older adult? [...] as of this encounter Progress Notes * Gabbi Alex PTA - 06/27/2025 2:00 PM EST [facility]- Outpatient PHYSICAL THERAPY DAILY TREATMENT NOTE - OP Date: 06/27/2025 Visit Number: 7 Patient Name: Alfie Arevalo : 1950 Age: 74 y.o. Gender: male Diagnosis: ICD-10-CM ICD-9-CM 1. Bilateral hip pain M25.551 719.45 M25.552 Date of Onset/Surgery: 03/25/2025 Referring Provider: Jenni Osborn PA Insurance: Payor: MEDICARE / Plan: MEDICARE PART A & B / Product Type: Medicare / Patient Identified by: Gabbi Alex PTA Language: Speaks and understands Kyrgyz as preferred language with no spanish interpreter/translator required Medications: Medications Ordered Prior to Encounter[1] Allergies: is allergic to grass pollen and sulfa (sulfonamide antibiotics). Precautions: None Fall risk: No SUBJECTIVE: Subjective Report: I saw the arthritis MD and he was happy Chart Reviewed: Yes Pain: (B) hip 09/02. OBJECTIVE: Vitals: There were no vitals filed for this visit.; TREATMENT INTERVENTION: Therex: Nu Step L5 x 5 minutes. True stretch for HF stretching x 3 reps on each side w/ 30 sec hold Marching PTB w/ hands on True stretch x 2 sets of 10 on each side. Lat stepping w/ BTB length counter x 3 laps each. Bridging w/ Hip ADD x 3 sets of 10. Manual Therapy: Manual stretching of (B) LE': HF, Hip Rot, Hip Ext. (B) Lat Hip Distraction. Foam rolling to (B) ITB's, Vl's. ASSESSMENT/Response to Treatment Good Pain decreased overall, possible DC next visit Patient Education: Education provided: HEP: Alt Knee fall outs in H/L. standing HF stretch on stairs.Bridging w/ Hip ADD. Lat stepping w/ BTB. SKTC, heel raises, SLS Education Provided To: Patient utilizing Explanation, Demonstration, and Printed Material mode(s) of education Response to Education: Applied Knowledge, Verbal Understanding, and Demonstrated Skills PLAN POC Development/Review: No Change in the Plan of Care; Participants: Patient Interventions Time Entry: Modalities: Therapeutic procedures: Therex: 21 Manual therapy: 9 Total Treatment Time: 30 Documentation completed by Gabbi Alex PTA [1] Current Outpatient Medications on File [...] 1 (one) time each day.90 capsule 3 No current facility-administered medications on file prior to visit. documented in this encounter Plan of Treatment Upcoming Encounters Date Type Department Care Team (Late st Contact Info) Description 07/21/2025 3:00 PM EST Office Visit Orthopedic Surgery - [place] [address] [facility] [address] [place] [phone] Aguila Palencia DPM [address] [facility] [address] [place] [phone] 09/10/2025 1:00 PM EST Office Visit Pulmonology - [place] [address] [facility] [address] [place] [phone] Vee Feldman NP [address] [place] [phone] 12/16/2025 1:00 PM EDT Office Visit Adult Medicine [address] [phone] Kane Goetz, PA [address] [place] [address] documented as of this encounter Goals Goal Patient Goal Type Associated Problems Recent Progress Patient-Stated? Author G's 12 visits General Yes Ryan Caputo, PT Note: Pt will report a 45% or better decrease in B hip pain when climbing stairs, walking or driving @[place]. (Met) Pt will demonstrate a 1 grade or better increase in B hip strength to increase tolerance to walking and negotiating stairs. (Progress made) Pt will be Independent and compliant with final HEP. documented as of this encounter Visit Diagnoses Diagnosis Bilateral hip pain- Primary Pain in joint, pelvic region and thigh documented in this encounter Additional Health Concerns Assessment Noted Time PHQ-9 Depression Total Score: 0 10/01/19 25 11:08 AM EDT documented as of this encounter Care Teams Human Resource Analyst Relationship Specialty Start Date End Date Kane Goetz PA [address] [place] [address] PCP - General Internal Medicine 06/04/24 documented as of this encounter
--- OUTSIDE RECORDS SUMMARY | 2025-07-02 13:30 | XMS_ITS | Encounter Summary ---
Author Organization [facility] Address [address] [place] [address] Care Team Providers Care Hydro Pneumatic Tester Name Role Phone Kane Goetz Primary Care Provider [phone] Reason for Visit * Consultation (Routine) - Authorized Specialty Diagnoses / Procedures Referred By Bella hoskins Referred To Contact Physical Therapy Diagnoses Bilateral hip pain Jenni Osborn PA [address] [place], [place] Phone: tel: fax: Referral ID Status Reason Start Date Expiration Date Visits Requested Visits Authorized [id number] Authorized Specialty Services Required 04/15/2025 04/15/2026 1 13 Encounter Details Date Type Department Care Team (Late st Contact Info) Description 07/02/2025 1:30 PM EST Treatment Outpatient Rehabilitation [address] [phone] Keely King, STRUCTURAL STEEL DETAILER Bilateral hip pain (Primary Dx) Social History [...] care for your loved ones. For example, early childhood associate or elderly care for an older adult? [...] Progress Notes * Keely King PTA - 07/02/2025 1:30 PM EST [facility]- Outpatient PHYSICAL THERAPY DAILY TREATMENT NOTE - OP Date: 07/02/2025 Visit Number: 8 Patient Name: Alfie Arevalo : 1950 Age: 74 y.o. Gender: male Diagnosis: ICD-10-CM ICD-9-CM 1. Bilateral hip pain M25.551 719.45 M25.552 Date of Onset/Surgery: 03/25/2025 Referring Provider: Jenni Osborn PA Insurance: Payor: MEDICARE / Plan: MEDICARE PART A & B / Product Type: Medicare / Patient Identified by: Keely King PTA Language: Speaks and understands Guyanese as preferred language with no thread marker required Medications: Medications Ordered Prior to Encounter[1] [...] Hip ADD x 3 sets of 10. Sit to stands x 30 reps. Manual Therapy: Manual stretching of (B) LE': HF, Hip Rot, Hip Ext. (B) Lat Hip Distraction. Foam rolling to (B) ITB's, Vl's. Finalized HEP and provided print out. ASSESSMENT/Response to Treatment Good Pt is independent w/ HEP. Pt able to perform 30 sit to stands w/o difficulty. No Hip pain reported. Patient Education: Education provided: HEP: Alt Knee fall outs in H/L. standing HF stretch on stairs.Bridging w/ Hip ADD. Lat stepping w/ BTB. SKTC, heel raises, SLS Education Provided To: Patient utilizing Explanation, Demonstration, and Printed Material mode(s) of education Response to Education: Applied Knowledge, Verbal Understanding, and Demonstrated Skills PLAN POC Development/Review: Pt D/C'd as per plan by Kindra Mckeon Interventions Time Entry: Modalities: Therapeutic procedures: Therex: 22 Manual therapy: 8 Total Treatment Time: 30 Documentation completed by [...] (ASTELIN) 137 mcg (0.1 %) nasal spray USE 2 SPRAYS IN EACH NOSTRIL TWICE DAILY 90 mL 3 B complex tablet Take [...] (CARDIZEM CD) 240 mg 24 hr capsule TAKE 1 CAPSULE ONCE DAILY 90 capsule 3 fluticasone propionate (FLONASE) 50 mcg/actuation nasal [...] 1 (one) time each day.90 capsule 3 [DISCONTINUED] azelastine (ASTELIN) 137 mcg (0.1 %) nasal spray Administer 2 sprays into each nostril 2 (two) times a day. 90 mL 3 [DISCONTINUED] dilTIAZem CD (CARDIZEM CD) 240 mg 24 hr capsule Take 1 capsule (240 mg total) by mouth 1 (one) time each day. 90 each 3 No current facility-administered medications on file prior to visit. documented in this encounter Plan of Treatment Upcoming Encounters Date Type Department Care Team (Late st Contact Info) Description 07/21/2025 3:00 PM EST Office Visit Orthopedic Surgery - [place] [address] [facility] [address] [place] [phone] Aguila Palencia DPM 175 [facility] [address] [place] [phone] 09/10/2025 1:00 PM EST Office Visit Pulmonology - [place] 175 [facility] [address] [place] [phone] Vee Feldman NP [address] [place] [phone] 12/16/2025 1:00 PM EDT Office Visit Adult [address] [phone] Kane Goetz PA [address] [place] [address] documented as of this encounter Goals Goal Patient Goal Type Associated Problems Recent Progress Patient-Stated? Author LTG's 12 visits General Yes Ryan Caputo, [...] documented as of this encounter Care Teams Hydro Pneumatic Tester Relationship Specialty Start Date End Date Kane Goetz PA [address] [place] [phone] PCP - General Internal Medicine 06/04/24 documented as of this encounter
--- OUTSIDE RECORDS SUMMARY | 2025-07-02 23:22 | XMS_ITS | Patient Health Record ---
Author Organization [facility] Address [address] [place] [address] Care Team Providers Care Conference Planning Manager Name Role Phone Kane Giron Primary Care Provider Unav ailable Kira Barragan Unavailable [phone] Reason For Referral No Information Encounters Encounter Location Date Provider Diagnosis [facility] [address] [place] [address] 01/28/2025 Kira Barragan Plan Of Treatment No Information Insurance Providers Payer Name Payer Address Payer Phone Subscriber Number Group Number Insured Name Patient Relationship to Insured Coverage Start Date Coverage End Date Medicare [facility] [address] [place] [address] [id number] Alfie Arevalo Self - patient is the insured [employer] [address] [place] [address] [phone] [id number] Alfie Arevalo Self - patient is the insured
--- OUTSIDE RECORDS SUMMARY | 2025-07-02 23:22 | XMS_ITS | Clinical Summary ---
Author Organization [address] [place] [address] Address [address] [place] [address] Phone Care Team Providers Care Child Care Provider Name Role Phone Kane Goetz Primary Care Provider [phone] Allergies Active Allergy Reactions Criticality Noted Date Comments Grass Pollen 12/25/2015 Sulfa (Sulfonamide Antibiotics) Rash 09/22 Medications fluticasone propionate (FLONASE) 50 mcg/actuation nasal spray Administer 2 sprays into affected nostril(s). 06/06/20 23 Active multivitamin tablet Take by mouth. With minerals Active cyanocobalamin (VITAMIN B-12) 1,000 mcg tablet Take 1 tablet (1,000 mcg total) by mouth. Active cholecalciferol (VITAMIN D-3) 10 mcg (400 unit) tablet Take by mouth. Ac tive omega-3 acid ethyl esters (LOVAZA) 1 gram capsule Take 1 capsule (1,000 mg total) by mouth 1 (one) time each day. 03/14/20 11 Active GENERIC EXTERNAL MEDICATION Monthly allergy injection Active apixaban (ELIQUIS) 5 mg tablet Take 1 tablet (5 mg total) by mouth 2 (two) times a day. 180 each 3 06/14/20 24 Active acetaminophen (TYLENOL) 500 mg tablet Take by mouth 2 (two) times a day. Active levothyroxine (SYNTHROID, LEVOTHROID) 88 mcg tablet Take 1 tablet (88 mcg total) by mouth 1 (one) time each day. 90 tablet 3 10/08/19 25 Active omeprazole (PriLOSEC) [address] capsule Take 1 capsule (20 mg total) by mouth 1 (one) time each day. 90 capsule 3 10/08/19 25 Active metoprolol tartrate (LOPRESSOR) 25 mg tablet TAKE 1 TABLET TWICE A DAY 180 tablet 2 11/01/19 25 Active betamethasone valerate (VALISONE) 0.1 % cream Apply 1 Application topically 2 (two) times a day. 90 g 1 12/20/19 25 Active Gemtesa 75 mg tablet tablet 11/07/19 25 Active B complex tablet Take 1 tablet by mouth 1 (one) time each day. Active montelukast (SINGULAIR) 10 mg tabletIndicatio ns:Chronic cough Take 1 tablet (10 mg total) by mouth at bedtime. 90 each 3 12/20/19 25 2025 Active methotrexate 2.5 mg tabletIndicatio ns:rheumatoid arthritis Take 3 tablets (7.5 mg total) by mouth 1 (one) time per week Follow directions carefully, and ask to explain any part you do not understand. Take exactly as directed. Active folic acid (FOLVITE) 1 mg tabletIndicatio ns:with methotrexate Take 1 tablet (1 mg total) by mouth 1 (one) time each day. Active ketoconazole (NIZORAL) 2 % cream Apply topically 1 (one) time each day. 60 g 2 04/21/20 25 2024 Active meloxicam (MOBIC) 15 mg tablet Take 1 tablet (15 mg total) by mouth 1 (one) time each day after dinner. 90 tablet 05/01/20 25 Active dilTIAZem CD (CARDIZEM CD) 240 mg 24 hr capsule TAKE 1 CAPSULE ONCE DAILY 90 capsule 3 07/01/20 25 Active azelastine (ASTELIN) 137 mcg (0.1 %) nasal sprayIndication s:Chronic cough USE 2 SPRAYS IN EACH NOSTRIL TWICE DAILY 90 mL 3 07/01/20 25 Active solifenacin (VESICARE) 10 mg tablet Take 1 tablet (10 mg total) by mouth. 2024 Discontinued(T herapy completed) dilTIAZem CD (CARDIZEM CD) 240 mg 24 hr capsule Take 1 capsule (240 mg total) by mouth 1 (one) time each day. 90 each 3 06/14/20 24 2024 Discontinued azelastine (ASTELIN) 137 mcg (0.1 %) nasal sprayIndication s:Chronic cough Administer 2 sprays into each nostril 2 (two) times a day. 90 mL 3 12/20/19 25 2024 Discontinued Active Problems Problem Noted Date Diagnosed Date [...] on a very low saturated fat diet-predominantly [id number] start regular aerobic exercise. I have ordered [...] Hypothyroidism 05/29/2019 Thoracic aortic aneurysm without rupture 019 Overview (06/14/2024): - Most recent echocardiogram from [...] to track aortic growth if any. 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 Given no known coronary artery disease or diabetes, dietary modification can continue though low threshold for starting statin therapy should his LDL go any higher. RIANNA on CPAP 12/03/2018 06/14/2024 Overview (09/12/2023): [facility] home study: Date 04/27/18: AHI 13, Central apneas 6; Obstructive apneas 28; Mixed apneas 0; hypopneas 49; average oxygen saturation 92% (lowest 76%); Hypertriglyceridemia 09/10/2009 024 Encounters Date Type Department Care Team Description 5 1:30 PM EST Treatment Outpatient [address] [phone] Keely King PTA Bilateral hip pain (Primary Dx) 5 2:00 PM EST Treatment Outpatient [address] [phone] Gabbi Alex PTA Bilateral hip pain (Primary Dx) 5 1:15 PM EST Office Visit Adult Medicine [address] [phone] Jenni Osborn PA Pure hypercholesterolemia (Primary Dx); Hypothyroidism, unspecified type; Persistent atrial fibrillation (CMS/HCC V24, CMS/HCC V28); Inflammatory arthritis; Benign prostatic hyperplasia, unspecified whether lower urinary tract symptoms present; RIANNA (obstructive sleep apnea); Gastroesophageal reflux disease, unspecified whether esophagitis present; Vitamin D deficiency; Vitamin B12 deficiency 5 12:30 PM EST Treatment Outpatient [address] [phone] Ryan Caputo, PT Bilateral hip pain (Primary Dx) 5 1:30 PM EST Treatment Outpatient [address] [phone] Keely King H, RECONCILIATION CLERK Bilateral hip pain (Primary Dx) 5 1:30 PM EST Treatment Outpatient [address] [phone] Keely King H, RECONCILIATION CLERK Bilateral hip pain (Primary Dx) 5 1:30 PM EST Treatment Outpatient [address] [phone] Keely King H, RECONCILIATION CLERK Bilateral hip pain (Primary Dx) 5 11:30 AM EDT Treatment Outpatient [address] [phone] Keely King H, RECONCILIATION CLERK Bilateral hip pain (Primary Dx) 5 1:30 PM EDT Treatment Outpatient [address] [phone] Ryan Caputo, PT Bilateral hip pain (Primary Dx); Bilateral shoulder pain, unspecified chronicity 5 Plan of Care Documentation Outpatient Rehabilitation [address] [phone] 5 1:30 PM EDT Treatment Outpatient [address] [phone] Ryan Caputo, PT Bilateral shoulder pain, unspecified chronicity (Primary Dx) 5 1:30 PM EDT Treatment Outpatient [address] [phone] Ryan Caputo, PT Bilateral shoulder pain, unspecified chronicity (Primary Dx) 5 1:45 PM EDT Office Visit Orthopedic Surgery - [place] [address] [place] [address] [address] [place] [phone] Aguila Palencia, DPM Acquired hallux valgus of left foot (Primary Dx); Acquired hallux valgus of right foot; Acquired hammer toe of right foot; Hammer toe of left foot; Ingrowing nail; Dermatophytosis of nail; Pain in toe of right foot; Pain in toe of left foot; Tinea pedis of both feet; Difficulty walking 5 1:30 PM EDT Treatment [place] [facility] [address] [place] [address] Ryan Caputo, PT Bilateral shoulder pain, unspecified chronicity (Primary Dx) 5 12:00 PM EDT Treatment [place] [facility] [address] [place] [address] Keely King, RECONCILIATION CLERK Bilateral shoulder pain, unspecified chronicity (Primary Dx) [...] History Medical History Date Comments Atrial fibrillation ([facility] V24, [facility] V28) Diabetes mellitus ([facility] V24, [facility] V28) Hypertension Aneurysm ([facility] V24) Family History Medical History Relation Name [...] Record ed Within the last 3 months, chapo lund many times did you visit the emergency [...] care for your loved ones. For example, childcare worker or elderly care for an older adult? [...] Orientation Straight 03/04/2025 3: 20 PM EDT Last Filed Vital Signs Vital Sign Reading Time Taken Comments Blood Pressure 121/57 06/13/2025 1:13 PM EST Pulse 56 06/13/2025 1:13 PM EST Temperature 36.4 C (97.6 F) 06/13/2025 1:13 PM EST Respiratory Rate 16 06/13/2025 1:13 PM EST Oxygen Saturation 96% 06/13/2025 1:13 PM EST Inhaled Oxygen Concentration - - Weight 89.4 kg (197 lb) 06/13/2025 1:13 PM EST Height 180.3 cm (5' 11 ) 06/13/2025 1:13 PM EST Body Mass Index 27.48 06/13/2025 1:13 PM EST Plan of Treatment Upcoming Encounters Date Type Department Care Team (Late st Contact Info) Description 07/21/2025 3:00 PM EST Office Visit Orthopedic Surgery - [place] [address] [facility] [address] [place] [phone] Aguila Palencia, DPM 175 [facility] [address] [place] [phone] 09/10/2025 1:00 PM EST Office Visit Pulmonology - [place] 175 [facility] [address] [place] [phone] Vee Feldman, EDWARDO [address] [place] [phone] 12/16/2025 1:00 PM EDT Office Visit Adult Medicine [facility] [address] [place] [phone] Kane Goetz, PA [address] [place] [phone] Health Maintenance Due Date Last Done Comments [...] V24, CMS/HCC V28) Disorder of cartilage, unspecified COLONOSCOPY Routine 07/12/2023 US ABDOMINAL AORTA REAL TIME SCREEN STUDY AAA Routine 02/02/2017 7:43 AM EDT Pure hyperglyceridemia Thoracic aortic ectasia (CMS/HCC V24) HEPATITIS C SCREENING Routine 03/09/2012 from Last 3 Months or Most Recently Relevant to Health Maintenance Results * Thyroid stimulating hormone with reflex to free t4 and free t3 (04/03/2025 11:06 AM EDT) [facility] Signature TSH 2.14 0.40 - 4.00 mcIU/mL LAB CHEMISTRY METHOD 04/03/2025 4:01 PM EDT [facility] Blood Venous blood specimen / Unknown Venipuncture / Unknown 04/03/2025 11:06 AM EDT 04/03/2025 11:06 AM EDT Kane GORDON LAB BLOOD ORDERABLES Yolanda l Result [facility] [address] [place] [address], * (ABNORMAL) Lipid panel with reflex to direct LDL (04/03/2025 11:06 AM EDT) Cholesterol 178 0 - 200 mg/dL LAB CHEMISTRY METHOD 04/03/2025 4:26 PM EDT [facility] Triglycerides 103 0 - 150 mg/dL LAB CHEMISTRY METHOD 04/03/2025 4:26 PM EDT [facility] HDL 45 >=40 mg/dL LAB CHEMISTRY METHOD 04/03/2025 4:26 PM EDT [facility] LDL Calculated 112(H) 0 - 100 mg/dL LAB CHEMISTRY METHOD 04/03/2025 4:26 PM EDT [facility] Comment:Estimated LDL Calcul ated using equation: Total cholesterol - HDL cholesterol - (Triglycerides/5) VLDL Cholesterol Joaquin 20.6 mg/dL LAB CHEMISTRY METHOD 04/03/2025 4:26 PM EDT [facility] Non HDL Chol. (LDL+VLDL) 133 <145 mg/dL LAB CHEMISTRY METHOD 04/03/2025 4:26 PM EDT [facility] Chol/HDL Ratio 4.0 0.0 - 4.4 LAB CHEMISTRY METHOD 04/03/2025 4:26 PM T [facility] Blood Venous blood specimen / Unknown Venipuncture / Unknown 04/03/2025 11:06 AM EDT 04/03/2025 11:06 AM EDT Kane GORDON LAB BLOOD ORDERABLES Yolanda l Result [facility] [address] [place] [address], * CBC auto differential (04/03/2025 11:06 AM EDT) WBC 6.8 4.8 - 10.8 K/mcL LAB HEMETOLOGY METHOD 04/03/2025 12:14 PM EDT [facility] RBC 4.70 4.50 - 5.50 M/mcL LAB HEMETOLOGY METHOD 04/03/2025 12:14 PM EDT [facility] Hemoglobin 15.0 13.5 - 17.5 g/dL LAB HEMETOLOGY METHOD 04/03/2025 12:14 PM EDT [facility] Hematocrit 44.1 42.0 - 54.0 % LAB HEMETOLOGY METHOD 04/03/2025 12:14 PM EDT [facility] MCV 93.0 79.0 - 98.0 FL LAB HEMETOLOGY METHOD 04/03/2025 12:14 PM EDT [facility] MCH 31.6 27.0 - 32.0 pcg LAB HEMETOLOGY METHOD 04/03/2025 12:14 PM EDT [facility] MCHC 34.0 32.0 - 37.0 g/dL LAB HEMETOLOGY METHOD 04/03/2025 12:14 PM EDT [facility] RDW 13.4 11.0 - 15.0 % LAB HEMETOLOGY METHOD 04/03/2025 12:14 PM EDT [facility] Platelets 168 130 - 400 K/mcL LAB HEMETOLOGY METHOD 04/03/2025 12:14 PM EDT [facility] MPV 11.0 7.0 - 11.0 FL LAB HEMETOLOGY METHOD 04/03/2025 12:[address] [facility] NRBC 0.0 <1.0 % LAB HEMETOLOGY METHOD 04/03/2025 12:[address] [facility] NRBC Absolute 0.00 <0.10 K/mcL LAB HEMETOLOGY METHOD 04/03/2025 12:[address] [facility] Neutrophils Relative 57.4 % LAB HEMETOLOGY METHOD 04/03/2025 12:[address] [facility] Lymphocytes Relative 26.7 % LAB HEMETOLOGY METHOD 04/03/2025 12:[address] [facility] Monocytes Relative 12.0 % LAB HEMETOLOGY METHOD 04/03/2025 12:[address] [facility] Eosinophils Relative 2.8 % LAB HEMETOLOGY METHOD 04/03/2025 12:[address] [facility] Basophils Relative 0.7 % LAB HEMETOLOGY METHOD 04/03/2025 12:[address] [facility] Immature Granulocytes Relative 0.4 % LAB HEMETOLOGY METHOD 04/03/2025 12:[address] [facility] Neutrophils Absolute 3.91 1.50 - 7.00 K/mcL LAB HEMETOLOGY METHOD 04/03/2025 12:[address] [facility] Lymphocytes Absolute 1.82 1.00 - 5.00 K/mcL LAB HEMETOLOGY METHOD 04/03/2025 12:[address] [facility] Monocytes Absolute 0.82 0.20 - 1.00 K/mcL LAB HEMETOLOGY METHOD 04/03/2025 12:[address] [facility] Eosinophils Absolute 0.19 0.00 - 0.50 K/mcL LAB HEMETOLOGY METHOD 04/03/2025 12:[address] [facility] Basophils Absolute 0.05 0.00 - 0.20 K/mcL LAB HEMETOLOGY METHOD 04/03/2025 12:14 PM EDT [facility] Immature Granulocytes Absolute 0.03 0.00 - 0.03 K/mcL LAB HEMETOLOGY METHOD 04/03/2025 12:14 PM EDT [facility] Blood Venous blood specimen / Unknown Venipuncture / Unknown 04/03/2025 11:06 AM EDT 04/03/2025 11:06 AM EDT Kane GORDON LAB BLOOD ORDERABLES Yolanda l Result Performing Organization Address City/[facility]/ZIP Co de Phone Number [facility] [address] [place] [address], * Vitamin D 25 hydroxy (04/03/2025 11:06 AM EDT) Vit D, 25-Hydroxy 61.7 30.0 - 80.0 ng/mL LAB CHEMISTRY METHOD 04/03/2025 4:01 PM EDT [facility] Blood Venous blood specimen / Unknown Venipuncture / Unknown 04/03/2025 11:06 AM EDT 04/03/2025 11:06 AM EDT Kane GORDON LAB BLOOD ORDERABLES Yolanda l Result Performing Organization Address City/[facility]/ZIP Co de Phone Number [facility] [address] [place] [address], [place] [phone] * Vitamin B12 (04/03/2025 11:06 AM EDT) Vitamin B-12 465 250 - 900 pcg/mL LAB CHEMISTRY METHOD 04/03/2025 4:26 PM EDT [facility] Blood Venous blood specimen / Unknown Venipuncture / Unknown 04/03/2025 11:06 AM EDT 04/03/2025 11:06 AM EDT Kane GORDON LAB BLOOD ORDERABLES Yolanda meryl Result [facility] [address] [place] [address], * Comprehensive metabolic panel (04/03/2025 11:06 AM EDT) Sodium 136 133 - 145 mmol/L LAB CHEMISTRY METHOD 04/03/2025 4:[address] [facility] Potassium 4.2 3.5 - 5.5 mmol/L LAB CHEMISTRY METHOD 04/03/2025 4:[address] [facility] Chloride 101 96 - 110 mmol/L LAB CHEMISTRY METHOD 04/03/2025 4:[address] [facility] CO2 28 21 - 32 mmol/L LAB CHEMISTRY METHOD 04/03/2025 4:[address] [facility] Anion Gap 7 3 - 11 LAB CHEMISTRY METHOD 04/03/2025 4:[address] [facility] Glucose 83 70 - 100 mg/dL LAB CHEMISTRY METHOD 04/03/2025 4:[address] [facility] BUN 13 5 - 25 mg/dL LAB CHEMISTRY METHOD 04/03/2025 4:[address] [facility] Creatinine 1.00 0.70 - 1.30 mg/dL LAB CHEMISTRY METHOD 04/03/2025 4:[address] [facility] eGFR 79 >=60 mL/min/1. 73m2 LAB CHEMISTRY METHOD 04/03/2025 4:[address] [facility] Comment:Calculation based on the Chronic Kidney Disease Epidemiology Collaboration (CKD-EPI) equation refit without adjustment for race. BUN/Creatinine Ratio 13.0 LAB CHEMISTRY METHOD 04/03/2025 4:[address] [facility] Calcium 9.1 8.5 - 10.5 mg/dL LAB CHEMISTRY METHOD 04/03/2025 4:[address] [facility] AST (SGOT) 33 10 - 42 unit/L LAB CHEMISTRY METHOD 04/03/2025 4:[address] [facility] ALT (SGPT) 36 10 - 60 unit/L LAB CHEMISTRY METHOD 04/03/2025 4:[address] [facility] Alkaline Phosphatase 111 42 - 121 unit/L LAB CHEMISTRY METHOD 04/03/2025 4:[address] [facility] Total Protein 6.9 6.0 - 8.0 g/dL LAB CHEMISTRY METHOD 04/03/2025 4:[address] [facility] Albumin 3.8 3.2 - 5.0 g/dL LAB CHEMISTRY METHOD 04/03/2025 4:[address] [facility] Total Bilirubin 0.7 0.0 - 1.4 mg/dL LAB CHEMISTRY METHOD 04/03/2025 4:[address] [facility] Blood Venous blood specimen / Unknown Venipuncture / Unknown 04/03/2025 11:06 AM EDT 04/03/2025 11:06 AM EDT Kane GORDON LAB BLOOD ORDERABLES Yolanda l Result [facility] [address] [place] [address], * Colonoscopy (07/12/2023) Colonoscopy no interpretation , [...] for abdominal aortic aneurysm. Mili Ghotra MD [facility] US PROCEDURES Final Result * Hepatitis C Screening (03/09/2012) Hepatitis C Screening abstracted Historical Provider HEALTH MAINTENANCE Final Result from Last 3 Months or Most Recently Relevant to Health Maintenance Insurance MEDICARE [facility] Care Teams Child Care Provider Relationship Specialty Start Date End Date Kane Goetz PA [address] [place] [address] PCP - General Internal Medicine 06/04/24
== END 2025-07-02 14:51 | disposition home or self-care (01) ==
LOC: HO.HMGAL 14:50
PROVIDERS: PCP Physician Assistant Medical; Visit Provider Registered Nurse Emergency
DX: J30.89 Other allergic rhinitis (principal)
CPT/HCPCS: 95117; 95165